=== PATIENT | male | born 1940 | race Caucasian/White ===

== ENCOUNTER 2016-08-27 12:25 | Day surgery (SDC) | payer MEDICARE ==
[~2016-08-27 12:25] MED LIST: ATOR10TA PO; FURO1TAB93 PO; KCL10C PO; LORTA5 PO
[2016-08-27 13:27] VITALS: BP 130/77; PULSE 78; RESP 20; TEMP 97; O2SAT 95
[2016-08-27 14:35] VITALS: BP 130/74; PULSE 75; RESP 16; TEMP 97; O2SAT 100
--- NOTE | 2016-08-27 14:37 | PD.RAD ---
Post US Procedure Prog Note Pre Procedure Diagnosis: (1) Thyroid mass of unclear etiology Post Procedure Diagnosis: (1) Thyroid mass of unclear etiology Procedure Date: Aug 27, 2016 Supervising Radiologist: Gomez Evans Anesthesia: Local Plan of Activity Patient to Unit: ROPU Patient Condition: Good See PACS Report for procedural detail/treatment Biopsy Imaging Guidance: Ultrasound Side: Left Biopsy Procedure: Thyroid Specimen: Fine Needle Aspirate Gomez Evans MD Aug 27, 2016 14:37
[2016-08-27 14:50] VITALS: BP 125/65; PULSE 63; RESP 20; TEMP 97.9; O2SAT 99
[2016-08-27] MEDS ORDERED: LIDOCAINE HCL 1% 30 ML VIAL ONE (15:19)
[2016-08-27] MEDS ORDERED: SODIUM BICARBONATE 8.4% INJ 50 ML ONE (15:19)
--- NOTE | 2016-08-27 15:49 | RADRPT ---
EXAM DATE/TIME: 08/27/2016 13:34 [place] COMPARISON: No previous studies available for comparison. INDICATIONS : Left thyroid mass. MEDICAL HISTORY : Hypercholesterolemia. A-Fib. Hypertension. Coronary artery disease. Carotid stenosis. SURGICAL HISTORY : Ulcer repair. ENCOUNTER: Initial ACUITY: 3 months PAIN SCORE: 0/10 LOCATION: Left thyroid. ORGAN: Left thyroid lobe SPECIMENS: Six fine needle aspirate(s) submitted for pathologic evaluation. DEVICE: 25 gauge needle Post procedure scanning reveals no hematoma or other complication. The possibility does exist that the tissue obtained will be non-diagnostic. If the sample is non-diag nostic a repeat biopsy or surgical biopsy may need to be performed. TECHNIQUE: 1. Ultrasound guidance for needle biopsy. 2. Needle biopsy. The risks, benefits, and alternatives to ultrasound guided needle biopsy were explained to the patien t in detail including the risk of bleeding and infection. Written and verbal informed consent was ob tained. With the patient on the ultrasound table, images were obtained. Overlying skin was prepped and drape d in the usual sterile fashion and Lidocaine was utilized as a local anesthetic. Multiple needles were advanced into the left thyroid mass and specimens as above obtained and submitt ed for pathologic evaluation. The patient tolerated the procedure well and left the ultrasound suite in stable condition. CONCLUSION: Uncomplicated ultrasound guided needle biopsy. Gomez Evans MD on August 27, 2016 at 15:47 Board Certified Radiologist. This report was verified electronically.
== END 2016-08-27 15:13 | disposition home or self-care (01) ==
LOC: HRAD 12:25 → HRIP 12:27 → HRAD 15:13
PROVIDERS: ATTEND Surgery Vascular Surgery
DX: E04.1 Nontoxic single thyroid nodule (principal); I10 Essential (primary) hypertension; I25.10 Atherosclerotic heart disease of native coronary artery without angina pectoris; I48.91 Unspecified atrial fibrillation; E78.00 Pure hypercholesterolemia, unspecified
CPT/HCPCS: 10022; 76942; 88172; 88173